=== PATIENT | female | born 1975 | race Two or more races ===

== ENCOUNTER 2024-08-13 18:33 | Emergency (ER) | payer MEDICAID, SELFPAY ==
[2024-08-13 18:35] VITALS: PULSE 117; O2SAT 99; BMI 28.5
--- NOTE | 2024-08-13 18:35 | PD.EDOVER ---
ED Overdose RME/HPI General Chief Complaint: Overdose Stated Complaint: OVERDOSE Time Seen by Provider: 08/13/24 19:05 Arrival date/time: 08/13/24 18:33 RME / HPI RME / HPI Narrative: This section includes all my notes and documentations, including HPI, PE, and ED course. Lars Scanlon MD HPI: 49yo female SHUKRI from home presents to the ED as a STAT medical for an overdose. Per EMS, family received a weird text from the patient at 1736, 1 1/2 hours ago. When family went to check on her, they found the patient unresponsive. EMS states the patient took 20 tablets of her trazadone 20mg, based on her trazodone bottle being empty next to her. They also found a bottle of vodka in the patient's bag. Patient was placed on a 5150 hold by [facility]. Can't obtain any history from the patient due to decreased mental status. Family not present. ROS: Can't obtain from the patient due to current clinical condition. Physical Exam: General: Patient doesn't open her eyes. Localizes to pain. Moans and groans but no words. Eyes: Conjunctivae and lids clear. Pinpoint pupils bilaterally. ENT: No nasal congestion. Positive gag reflex. Patent airway. Neck: Supple. Heart: Sinus tachycardia noted. Lungs: No respiratory distress. Good air movement. No rhonchi, wheezing, rales. Abdomen: Soft and nontender. Legs: No clubbing, cyanosis, edema. Skin: Warm and dry. Neuro: Difficult exam due to decreased mental status. I reviewed all diagnostic test results. My interpretation of the EKG is sinus tachycardia with no acute ST?T changes with QRS 100 and QTc 475. My interpretation of the chest x-ray is NAD. Blood tests and urine tests unremarkable except serum alcohol 119. At this point, diagnoses include trazodone overdose and alcohol intoxication. Treatment here included IV fluid and Zofran and MgSO4 2 gram IV (to prevent torsades). I discussed the case with poison control. About the presentation and exam and diagnostics and treatments here. Recommended serial EKG. Patient can be medically cleared in 6 hours if mental status returns to baseline. And QRS and QTc don't increase. Patient's mental status returned to baseline. Patient is medically cleared for psychiatric evaluation, including evaluation by our ED morning caregiver. At 6 AM on 08/14/2024, the care of the patient was transferred to Dr Barcenas. Lars Scanlon MD Related Data Allergies Allergy/AdvReac Type Severity Reaction Status Date / Time acetaminophen (From Vicodin) Allergy throat Verified 08/13/24 19:03 swelling hydrocodone (From Vicodin) Allergy throat Verified 08/13/24 19:03 swelling Review of Systems Review of Systems ROS Unobtainable: unobtainable due to mental status Past Medical History Social History SMOKING STATUS: Unknown if ever smoked ED Exam Narrative Physical exam: As noted in HPI. Course Course Course Narrative: CXR is ordered for determining the etiology of AMS. Quality Measures none Orders Category Date Time Status 1798 [179 Psychiatric Hold] NOW Care 08/13/24 20:30 Ordered EKG (ED ONLY) *Do not use* NOW Care 08/13/24 18:38 Completed EKG (ED ONLY) *Do not use* NOW Care 08/13/24 21:08 Completed EKG (ED ONLY) *Do not use* NOW Care 08/14/24 00:24 Completed EKG (ED ONLY) *Do not use* NOW Care 08/14/24 04:40 Active [place] to [place] Routine Care 08/13/24 18:37 Ordered Miscellaneous Nursing Order NOW Care 08/13/24 18:37 Active Saline [Insert IV] NOW Care 08/13/24 18:37 Active EKG (ED Only) Stat Exams 08/13/24 18:38 Draft EKG (ED Only) Stat Exams 08/13/24 21:08 Draft EKG (ED Only) Stat Exams 08/14/24 00:24 Draft EKG (ED Only) Stat Exams 08/14/24 04:40 Ordered XR chest 1V portable Stat Exams 08/13/24 18:38 Completed ABG [Arterial Blood Gas] Stat Lab 08/13/24 18:50 Completed Acetaminophen Stat Lab 08/13/24 18:47 Completed Alcohol, Blood Medical Stat Lab 08/13/24 18:47 Completed CBC Stat Lab 08/13/24 18:47 Completed CK [Creatine Kinase] Stat Lab 08/13/24 18:47 Completed CMP [Comprehensive Metabolic Panel] Stat Lab 08/13/24 18:47 Completed Drug Screen,Urine Stat Lab 08/13/24 18:45 Completed HCG Qualitative,Urine Stat Lab 08/13/24 18:45 Completed Magnesium Stat Lab 08/13/24 18:47 Completed PT [Prothrombin Time with INR] Stat Lab 08/13/24 18:47 Completed PTT [Partial Thromboplastin Time] Stat Lab 08/13/24 18:47 Completed Salicylate Stat Lab 08/13/24 18:47 Completed Troponin I Stat Lab 08/13/24 18:47 Completed UA, C/S IF [Urinalysis, C/S if Indicated] Stat Lab 08/13/24 18:45 Completed Magnesium Sulfate 2 GM Ivpb [Magnesium Sulfate Ivpb] Med 08/13/24 21:59 Discontinued 2 gm in 50 ml IV X1 Ondansetron Inj [Zofran Inj] Med 08/13/24 18:37 Discontinued 4 mg IV X1 ONE Ringers Lactated 1000 ml [Lactated Ringers] 1,000 ml Med 08/13/24 20:30 Discontinued IV 1,000 mls/hr Sodium Chloride 0.9% 1000 ml [Ns] 1,000 ml Med 08/13/24 18:37 Discontinued IV 999 mls/hr Vital Signs Vital signs: Vital Signs Pulse Rate 107 H 08/13/24 18:40 Respiratory Rate 12 08/13/24 18:40 Pulse Oximetry (%) 98 08/13/24 18:40 Oxygen Flow Rate 4 08/13/24 18:40 Overdose MDM Narrative MDM Narrative:: Scribe Attestation: 08/13/24 Edie Torres am scribing for and in the presence of Dr. Scanlon. Patient data External records reviewed:: [facility] previous records (Per chart review, patient has no previous ED visits or admissions to this facility.) Clinical information provided by:: EMS Social determinants that could affect healthcare access:: none Patient has the following chronic illnesses:: unknown How is presenting disease/condition affected by chronic disease/condition?: no chronic disease Evaluation data The following diagnostics were reviewed and interpreted by me:: lab results, radiology exam(s) and EKG tracing(s) Lab and/or radiology exams considered but not ordered:: none Interpretation Summary: Normal diagnostics except serum alcohol 119 Medications / Prescriptions Medications or Prescriptions considered but not ordered:: none Medication administrations:: Medication Administration History Discontinued Medications Sodium Chloride (Ns) 1,000 mls @ 999 mls/hr IV .Q1H1M ONE Stop: 08/13/24 19:37 Last Infusion: 08/13/24 21:30 Dose: Infused Documented By: Admin: 08/13/24 20:22 Dose: 999 mls/hr Documented By: EVIE Lactated Ringer's (Lactated Ringers) 1,000 mls @ 1,000 mls/hr IV .Q1H NICKO Stop: 08/13/24 21:29 Last Infusion: 08/13/24 22:38 Dose: Infused Documented By: Admin: 08/13/24 21:15 Dose: 1,000 mls/hr Documented By: CHETAN Magnesium Sulfate (Magnesium Sulfate Ivpb) 2 gm in 50 mls @ 25 mls/hr IV X1 ONE Stop: 08/13/24 23:58 Last Infusion: 08/14/24 00:37 Dose: Infused Documented By: Admin: 08/13/24 22:37 Dose: 25 mls/hr Documented By: CHETAN Ondansetron HCl (Ondansetron Inj 2 Mg/Ml Inj 2 Ml) 4 mg IV X1 ONE; Protocol Stop: 08/13/24 18:38 Last Admin: 08/13/24 20:21 Dose: 4 mg Documented By: EVIE Magnesium Sulfate, IV fluid, Zofran Consultations Consultation(s) initiated? (list below): No Diagnosis Overdose Differential Diagnosis: cocaine intoxication, suicide attempt by multiple drug overdose, poisoning by opiate or related narcotic, drug overdose, acetaminophen overdose and accidental drug ingestion Most likely diagnosis given after review of the tests above:: Trazodone overdose and alcohol intoxication Admission Indicated Admission indicated?: not indicated Explain why admission is indicated or not indicated:: No psychiatric service available here Admission Request Was there a request for admission?: No Disposition Plan Disposition Plan: other (specify) (Care of the patient was transferred to the Dr Barcenas) Critical Care Time Critical Care Time Critical Care Time: Yes Total Critical Care Time (min.): 45 Attestation: Due to a high probability of clinically significant, life threatening deterioration, the patient required my highest level of preparedness to intervene emergently and I personally spent this critical care time directly and personally managing the patient. This critical care time included obtaining a history; examining the patient; ordering and review of studies; arranging urgent treatment with development of a management plan; evaluation of patient's response to treatment; frequent reassessment; and discussions with family and other providers. It was exclusive of separately billable procedures and treating other patients and teaching time. Lars Scanlon MD Discharge Plan Prescriptions/Referrals Referrals: No Primary/Family,Physician [Primary Care Provider] - In 1 week Problem List Clinical Impression: Overdose of trazodone, Alcohol intoxication Patient/Caregiver Discharge Instructions Print Language: Lithuanian
--- NOTE | 2024-08-13 18:38 | EKG_ITS ---
[facility] Test Date: 2024-08-13 Pat Name: YISEL WALLER Department: Room: - Gender: Female Executive Manager: : 1974-11-14 Requested By: Lars Arguello Order Number: [id number] Reading MD: Lars Arguello Measurements Intervals [place] Rate: 102 P: 16 [place]: 136 QRS: -18 QRSD: 100 T: 1 QT: 364 QTc: 475 Interpretive Statements SINUS TACHYCARDIA LOW QRS VOLTAGE IN PRECORDIAL LEADS [QRS DEFLECTION < 1.0 mV IN CHEST LEADS] ABNORMAL RHYTHM ECG No previous ECG available for comparison /store/S0/[id number].pdf
--- NOTE | 2024-08-13 18:38 | XR_ITS ---
Examination: AP chest single view Technique one AP portable upright chest single view Exam date and time: August 13, 2024 1921 hrs. Indications: Shortness of breath chest pain today Findings: Normal heart size Lungs are clear The osseous structures are intact Impression: No active disease
[2024-08-13 18:40] VITALS: PULSE 107; RESP 12; O2SAT 98
[2024-08-13 18:41] VITALS: BP 158/110; PULSE 105; PULSE 109; RESP 22; RESP 9; TEMP 37; O2SAT 100; O2SAT 99
--- NOTE | 2024-08-13 18:48 | PC.NURSE ---
Patient biba with c/o possible overdose per EMS patient last contacted family at 1745 via text as last well known. Per family called PD and EMS, patient transported on 15l NRB, gcs 3, maintaining airway, not responsive to painful stimuli, patient obtunded. Per EMS, patient had empty bottle of trazadone at her side with empty bottles of vodka. Trazadone 50mg tab one pill at bedtime about 20pills per family. Per [facility] [place] will place on 5150 hold.
[2024-08-13 18:54] LABS: Collection Type, Urine Clean Catch
[2024-08-13 18:57] LABS: Allen Test Not Performed; Base Excess 0 (-3-3); HCO3 25 mEq/L (20-26); Inspired O2, VO2 Liters 4 L/min; Inspired Oxygen, FIO2 21 %; O2 Saturation 99 % (91-98); PCO2 43 mmHg (32.0-48.0); PO2 130 mmHg (83-108); Puncture Site Left Radial; pH, Arterial 7.37 (7.35-7.45)
[2024-08-13 18:59] LABS: Basophils % (Auto) 0 % (0-2.5); Eosinophils # (Auto) 0.2 Thou/mm3 (0.0-0.5); Eosinophils % (Auto) 4 % (0-10); Hematocrit 37.5 % (36.0-46.0); Hemoglobin 12.5 g/dL (12.0-16.0); Immature Granulocytes % (Auto) 0 % (0-0); Immature Granulocytes Auto 0.02 Thou/mm3 (0.00-0.00); Lymphocytes # (Auto) 2.5 Thou/mm3 (1.0-4.8); Lymphocytes % (Auto) 40 % (10-50); Mean Corpuscular HGB Conc 33.3 g/dl (31.0-37.0); Mean Corpuscular Hemoglobin 30.4 pg (25.0-35.0); Mean Corpuscular Volume 91 fL (80-100); Monocytes # (Auto) 0.3 Thou/mm3 (0.0-0.8); Monocytes % (Auto) 5 % (0-12); Neutrophils # (Auto) 3.2 Thou/mm3 (1.8-7.7); Neutrophils % (Auto) 51 % (37-80); Nucleated Red Blood Cell % 0 /100 WBC (0); Platelet Count 275 Thou/mm3 (140-440); RDW Standard Deviation 49.9 fL (36.4-46.3); Red Blood Count 4.11 Miln/mm3 (4.00-5.20); White Blood Count 6.3 Thou/mm3 (3.6-11.0)
--- NOTE | 2024-08-13 19:02 | PC.NURSE ---
Patient now awake and answering questions.
[2024-08-13 19:05] LABS: Bilirubin,Urine Negative (Negative); Blood,Urine Negative (Negative); Clarity,Urine Clear (Clear/Hazy); Color,Urine Colorless (Lt Yel-Yel); Culture Indicated,Urine Not Indicated; Glucose, Urine Negative (Negative); Ketones,Urine Negative (Negative); Leukocyte Esterase,Urine Negative (Negative); Nitrite,Urine Negative (Negative); PH,Urine 6.5 (5.0-7.0); Protein,Urine Negative (Neg - Trace); RBC,Urine < 1 /hpf (0-3); Specific Gravity,Urine 1.007 (1.001-1.035); Squamous Epithelial Cell,Urine < 1 /hpf (0-5); Urobilinogen,Urine Negative mg/dL (0.0-1.0); WBC,Urine 1 /hpf (0-5)
[2024-08-13 19:10] LABS: HCG Qualitative,Urine Negative
[2024-08-13 19:11] LABS: Partial Thromboplastin Time 24.5 Seconds (22.0-36.0); Prothrombin Time 10.8 Seconds (9.0-12.2)
[2024-08-13 19:14] LABS: Amphetamine/Methamp Scrn,U Negative (Negative); Barbiturate Screen,Urine Negative (Negative); Benzodiazepines Screen,Urine Negative (Negative); Benzoylecgonine Screen, Ur Negative (Negative); Fentanyl Screen,Urine Negative (Negative); Opiate Screen,Urine Negative (Negative); THC Screen,Urine Negative (Negative)
[2024-08-13 19:39] LABS: Acetaminophen < 2.0 mcg/mL (10.0-20.0); Alanine Aminotransferase 9 U/L (10-49); Albumin, Serum 4.1 gm/dL (3.5-5.0); Albumin/Globulin Ratio 1.2 (1.2-2.2); Alkaline Phosphatase 80 U/L (46-116); Anion Gap 10 (7-16); Aspartate Amino Transferase 18 U/L (0-34); BUN/Creatinine Ratio 13 Ratio (12-20); Bilirubin,Total 0.4 mg/dL (0.3-1.2); Blood Urea Nitrogen 10 mg/dL (9-23); Calcium 8.8 mg/dL (8.3-10.6); Calcium (Corrected) 8.8 mg/dL (8.5-10.1); Carbon Dioxide 24.6 mMol/L (20.0-31.0); Chloride 109 mMol/L (98-107); Creatine Kinase 96 U/L (34-171); Creatinine (Component) 0.8 mg/dL (0.6-1.3); Globulin 3.3 gm/dL (2.3-3.5); Glucose 91 mg/dL (74-106); Magnesium 1.9 mg/dL (1.6-2.6); Osmolality,Calculated 285 (275-295); Potassium 3.5 mMol/L (3.4-5.1); Salicylate < 3.0 mg/dL; Sodium 144 mMol/L (136-145); Total Protein 7.4 gm/dL (5.7-8.2); Troponin I < 0.020 ng/mL (0.0-0.045); eGFR > 60 See Note
[2024-08-13] MEDS: ONDANSETRON INJ 2 MG/ML INJ 2 ML 4 MG IV (20:21)
[2024-08-13] MEDS: SODIUM CHLORIDE 0.9% 1000 ML 1,000 ML 999 ML IV (20:22)
[2024-08-13 20:47] VITALS: BP 129/86; PULSE 92; RESP 18; TEMP 37.1; O2SAT 97
[2024-08-13 21:00] VITALS: BP 136/99; PULSE 82; RESP 21; O2SAT 96
--- NOTE | 2024-08-13 21:08 | EKG_ITS ---
[facility] Test Date: 2024-08-13 Pat Name: YISEL WALLER Department: Room: - Gender: Female Copy Reader: : 1974-11-14 Requested By: Lars Arguello Order Number: [id number] Reading MD: Lars Arguello Measurements Intervals [place] Rate: 85 P: 30 [place]: 156 QRS: -15 QRSD: 94 T: 9 QT: 364 QTc: 433 Interpretive Statements SINUS RHYTHM LOW QRS VOLTAGE IN PRECORDIAL LEADS [QRS DEFLECTION < 1.0 mV IN CHEST LEADS] Compared to ECG 08/13/2024 18:46:25 Sinus tachycardia no longer present /store/S0/[id number]/ecg/[id number].pdf
[2024-08-13] MEDS: RINGERS LACTATED 1000 ML 1,000 ML IV (21:15)
[2024-08-13 21:30] VITALS: BP 129/81; PULSE 81; RESP 16; O2SAT 100
--- NOTE | 2024-08-13 22:07 | PC.NURSE ---
At 1915,when I recieved report, pt was awake GCS was 15. pt denies that she was intending to commit suicide. Pt states that she was having a lot of anxiety so she took trazadone 100mg . Stated 50 mg doesnt do anything she said she took 100mg in the morning around 0600. She said she took 100 mg two more times throughout the day because of her anxietey. denies wanting to end her life.
[2024-08-13] MEDS: Magnesium Sulfate 2 GM Ivpb 2 GM/50 ML BAG IV (22:37)
[2024-08-14] VITALS (7 sets, daily range): BP systolic 95–134; BP diastolic 63–94; PULSE 75–105; RESP 16–18; TEMP 36.6–37.1; O2SAT 95–99
--- NOTE | 2024-08-14 00:24 | EKG_ITS ---
[facility] Test Date: 2024-08-14 Pat Name: YISEL WALLER Department: Room: - Gender: Female Gm Mobile: : 1974-11-14 Requested By: Lars Arguello Order Number: [id number] Reading MD: Lars Arguello Measurements Intervals [place] Rate: 83 P: 29 [place]: 153 QRS: -20 QRSD: 92 T: -5 QT: 376 QTc: 442 Interpretive Statements SINUS RHYTHM LOW QRS VOLTAGE IN PRECORDIAL LEADS [QRS DEFLECTION < 1.0 mV IN CHEST LEADS] Compared to ECG 08/13/2024 21:52:45 No significant changes /store/S0/[id number]/ecg/[id number].pdf
--- NOTE | 2024-08-14 04:40 | EKG_ITS ---
[facility] Test Date: 2024-08-14 Pat Name: YISEL WALLER Department: Room: - Gender: Female Credit Support Counselor: : 1974-11-14 Requested By: Lars Arguello Order Number: [id number] Reading MD: Lars Arguello Measurements Intervals [place] Rate: 109 P: 31 [place]: 159 QRS: -21 QRSD: 93 T: 1 QT: 297 QTc: 401 Interpretive Statements SINUS TACHYCARDIA BORDERLINE LEFT AXIS DEVIATION [QRS AXIS < -20] LOW QRS VOLTAGE IN PRECORDIAL LEADS [QRS DEFLECTION < 1.0 mV IN CHEST LEADS] ABNORMAL RHYTHM ECG Compared to ECG 08/14/2024 00:38:25 Sinus rhythm no longer present /store/S0/[id number]/[id number].pdf
--- NOTE | 2024-08-14 07:03 | EDNOTE_ITS ---
Emergency Room Addendum <Ciera Mosquera - Last Filed: 08/14/24 13:16> Addendum Narrative: 0600: Care assumed from Dr. Scanlon, the previous shift emergency physician. Past medical, surgical, social and family history reviewed. Vitals and home medications reviewed. I will assume the care of the patient at this time, pending mental health evaluation. Patient on 5150 hold. Please refer to the emergency department record for history and examination from initial visit. 1227: 5150 hold upheld. <Coretta Moreno - Last Filed: 08/14/24 17:19> Addendum Narrative: 0600: Care assumed from Dr. Scanlon, the previous shift emergency physician. Past medical, surgical, social and family history reviewed. Vitals and home medications reviewed. I will assume the care of the patient at this time, pending mental health evaluation. Patient on 5150 hold. Please refer to the emergency department record for history and examination from initial visit. 1227: 5150 hold upheld, patient pending LPS facility placement at this time. Patient has been accepted for transfer by psychiatrist Dr. Hamlin at [facility]. EMS p/u @ 17:30 hours.
[2024-08-14] MEDS: SODIUM CHLORIDE 0.9% 1000 ML 1,000 ML 999 ML IV (11:19)
--- NOTE | 2024-08-14 12:00 | PC.NURSE ---
LUNCH TRAY PROVIDED.
--- NOTE | 2024-08-14 12:34 | PC.CC ---
Patient is a 49 year-old female who presents to the hospital on 5150-hold for Danger to Self by [place] [employer] Officer Buddy. It was reported that the patient had intentionally taken 20 Trazadone pills with the intention of killing herself. ASSonia and NEUROSURGICAL PHYSICIAN ASSISTANT student, Merle met with patient [id number] to complete assessment. ASW introduced self, role, and reason for assessment. Patient provided consent for NEUROSURGICAL PHYSICIAN ASSISTANT to remain in the room during assessment. ASW disclosed limits of confidentiality as well. Patient appeared alert and oriented to self, place, and situation. Patient was well groomed; her mood appeared to be euthymic; her behavior was guarded as she was not forthcoming; patient had good insight and judgment. Patient?s thought process was linear and organized. No signs of delusions, paranoid or V/h. Patient reports she suffers from generalized anxiety and felt anxious yesterday. Patient stated, ?I took 2 Trazadone in the morning then later I took another 2 and in the evening I took another 2 and some tequila.? Patient reports she had not felt anxious for a ?while.? Patient reports upon her taking the last two pills she passed out. ? ASW explored with patient if an event had triggered her anxiety in which the patient responded no. At the time of encounter the patient denied suicidal and homicidal ideations, visual and auditory hallucinations. Patient reports last year she was placed on a 5150-hold for a suicide attempt by intentional overdose of Xanax. Patient reports she had a prior suicide attempt in her twenties. Patient is connected with outpatient mental health services at the [facility] and is seen by Psychiatrist, Dr. Ohara. Patient reports she has a mental health diagnosis of Major Depressive Disorder and Generalized Anxiety. Patient reports she is prescribed Trazadone to help her sleep at night and Effexor 150mg. Patient was low-risk on the [place] Suicide Scale. Patient?s toxicology report was negative for substances except for alcohol. Patient provided verbal consent to make contact with her daughter Jose G Fabian . Soumya URIBE made telephone contact with patient?s daughter for collateral information. Patient?s daughter reports the patient called her and notified her to not be forthcoming. She reports yesterday her mother sent her a text message stating ?I am done with you and everything.? Patient?s daughter reports they live in a two story and she came downstairs to provide her mother with her Trazadone when she went to get water and when she came back she realized her mother had taken the bottle of Trazadone. Per daughter, she called 911 and when the ambulance showed up the patient was unresponsive. She reports her mother has an alcohol problem and has also been drinking for multiple years and is not compliant with her psychotropic medication. Daughter reports the patient has a mental health diagnosis of Major Depressive Disorder and Generalized Anxiety. Patient?s daughter reports she feels that her mother needs help because she is in denial. ASW made face to face contact with the patient with the intention of the patient providing forthcoming information of taking the 20 Trazadone Pills. The patient continues to deny taking 20 Trazadone pills and continues to state she only took 6 pills. Upon clinical consultation with Valeri CLANCY the patient 5150-hold for Danger to Self was upheld. ASW provided advisement to patient and provided update to patient?s daughter. ASW provided discharge plan to psychiatric LPS facility to Dr. Barcenas, truck despatcher Alicia, and bedside SURINDER Medina. ASW to send referral packet to LPS Facilities via [employer]. ??
--- NOTE | 2024-08-14 13:59 | PC.CC ---
Patient was accepted to [facility], [facility] provided accepting information. Dr. Hamlin accepted patient into [address]. ASW to arrange transportation. Patient was made aware of accepting facility. ASW provided accepting information to patient's daughter via telephone. Dr. Barcenas, application consultant Magalys, and bedside RN Carol was made aware of accepting information.
--- NOTE | 2024-08-14 14:00 | PC.NURSE ---
significant other at bedside.
--- NOTE | 2024-08-14 17:51 | PC.NURSE ---
EMS HERE TO ASSOCIATE PROFESSOR OF PSYCHOLOGY PT.
== END 2024-08-14 18:12 ==
PROVIDERS: Emergency Medicine; Emergency Provider Emergency Medicine
DX: Z04.6 Encounter for general psychiatric examination, requested by authority (principal); T43.211A Poisoning by selective serotonin and norepinephrine reuptake inhibitors, accidental (unintentional), initial encounter; R40.4 Transient alteration of awareness; R00.0 Tachycardia, unspecified; F10.129 Alcohol abuse with intoxication, unspecified; Y90.5 Blood alcohol level of 100-119 mg/100 ml; Z75.1 Person awaiting admission to adequate facility elsewhere
CPT/HCPCS: 36415; 36600; 71045; 80053; 80307; 80320; 80329; 81001; 81025; 82550; 82803; 83735; 84484; 85025; 85610; 85730; 90839; 93005; 96127; 96361; 96365; 96366; 99291; J2405; J3475; J7030; J7120; G0480